=== PATIENT | female | born 1985 | race Caucasian/White ===

== ENCOUNTER 2021-02-15 08:15 | Inpatient (IN) | payer OTHER ==
[2021-02-15 09:08] VITALS: BMI 25.9
[2021-02-15] MEDS: ELECTROLYTE-148 SOLN 1,000 ML IV SCH ×3 (09:15→17:03)
[2021-02-15] MEDS ORDERED: OXYTOCIN 30 UNITS in 0.9% NS 30 UNIT/500 ML INFUS.BAG IVPB SCH (09:15)
[2021-02-15] MEDS ORDERED: DEXTROSE 5%-LACTATED RINGERS 1,000 ML IV SCH (09:15)
[2021-02-15 09:41] LABS: EOS % 0.6 % (0-4.5); HEMATOCRIT 36.7 % (32.4-45.2); HEMOGLOBIN 12.5 GM/dL (10.7-15.3); MCH 30.9 pg (25.7-33.7); MCHC 34.1 g/dl (32.0-36.0); MEAN CELL VOLUME 90.7 fl (80-96); MONO % 7.8 % (3.8-10.2); NEUT % 79.6 % (42.8-82.8); PLATELET COUNT 149 K/MM3 (134-434); RBC 4.05 M/mm3 (3.60-5.2); RDW 13.7 % (11.6-15.6); WHITE BLOOD COUNT 8.3 K/mm3 (4.0-10.0)
[2021-02-15 09:51] LABS: INR 0.91 (0.83-1.09)
[2021-02-15 09:55] LABS: ACTIVATED PTT 26.2 SECONDS (25.2-36.5)
[2021-02-15] MEDS ORDERED: OXYTOCIN 30 UNITS in 0.9% NS 30 UNIT/500 ML INFUS.BAG IVPB ONE (09:59)
[2021-02-15 10:03] LABS: CALCIUM 8.7 mg/dL (8.5-10.1)
[2021-02-15 10:04] LABS: BLOOD UREA NITROGEN 8.7 mg/dL (7-18)
[2021-02-15 10:07] LABS: CREATININE 0.5 mg/dL (0.55-1.3)
[2021-02-15 13:04] LABS: HIV INTERPRETATION NEGATIVE (NEGATIVE)
[2021-02-15] MEDS ORDERED: FENTANYL/BUPIVACAINE/NS/PF - PCEA - 50 ML DISP.SYRIN EP ONE ×2 (15:59→20:30)
[2021-02-15] MEDS ORDERED: PCA PUMP NR ONE (15:59)
[2021-02-15] MEDS ORDERED: BUPIVACAINE HCL/PF 0.25% (2.5MG/ML) 10 ML VIAL ONE (16:09)
[2021-02-15] MEDS ORDERED: NALOXONE HCL 0.4 MG/ML VIAL IVPUSH PRN (16:39)
[2021-02-15] MEDS ORDERED: FENTANYL/BUPIVACAINE/NS/PF - PCEA - 50 ML DISP.SYRIN EP SCH (16:45)
[2021-02-15] MEDS ORDERED: LIDOCAINE HCL 1% PRESERVATIVE FREE - 30ML VIAL ONE (21:31)
[2021-02-15] MEDS ORDERED: OXYTOCIN 20 UNITS in 0.9% NS 20 UNIT/1,000 ML INFUS.BAG IV ONE (21:32)
[2021-02-15 22:45] LABS: CORD BASE EXCESS -5.5 mmol/L (0-2); CORD HCO3 21.9 mmHg (20-29); CORD PCO2 49.5 mmHg (30-78); CORD pH 7.263 (7.14-7.44)
[2021-02-15] MEDS ORDERED: BISACODYL 10 MG SUPP.RECT RC PRN (22:45)
[2021-02-15] MEDS ORDERED: METHYLERGONOVINE MALEATE 0.2 MG/1 ML AMP IM PRN (22:45)
[2021-02-15] MEDS ORDERED: BENZOCAINE 28 GM HEMORRHOIDAL OINTMENT TP PRN (22:45)
[2021-02-15] MEDS ORDERED: BENZOCAINE 20% 57 GM BOTTLE TP PRN (22:45)
[2021-02-15] MEDS ORDERED: WITCH HAZEL 50% (TUCKS) 40 PAD/JAR PAD TP PRN (22:45)
[2021-02-15] MEDS ORDERED: OXYTOCIN 20 UNITS in 0.9% NS 20 UNIT/1,000 ML INFUS.BAG IV SCH (22:45)
[2021-02-15 22:47] LABS: CORD BASE EXCESS -6.7 mmol/L (0-2); CORD HCO3 18.4 mmHg (20-29); CORD PCO2 36.2 mmHg (30-78); CORD pH 7.325 (7.14-7.44)
[2021-02-15] MEDS ORDERED: LIDOCAINE HCL 2% JELLY (30 ML/TUBE) TP ONE (22:49)
[2021-02-15] MEDS ORDERED: DOCUSATE SODIUM 100 MG CAPSULE (FP) PO PRN (22:51)
[2021-02-16] MEDS ORDERED: OXYTOCIN 20 UNITS in 0.9% NS 20 UNIT/1,000 ML INFUS.BAG IV ONE (00:08)
[2021-02-16] MEDS ORDERED: PCA PUMP NR ONE (00:38)
[2021-02-16] MEDS: ACETAMINOPHEN 325 MG TABLET (FP) PO PRN ×2 (00:44→06:10)
[2021-02-16] MEDS: IBUPROFEN 600 MG TABLET (FP) PO PRN ×2 (00:44→06:10)
[2021-02-16] MEDS ORDERED: CEFAZOLIN 1 GM in DEXTROSE 5%-WATER - 50 ML IVPB SCH (02:00)
[2021-02-16] MEDS ORDERED: CEFAZOLIN 1 GM/D5W 1 GM/50 ML BAG IVPB SCH (02:11)
[2021-02-16] MEDS: CEFAZOLIN 1 GM/D5W 1 GM/50 ML BAG IVPB SCH ×2 (03:14→09:15)
[2021-02-16 09:47] LABS: EOS % 0.1 % (0-4.5); HEMATOCRIT 34.7 % (32.4-45.2); HEMOGLOBIN 11.6 GM/dL (10.7-15.3); LYMPH % 4.8 % (8-40); MCH 30.8 pg (25.7-33.7); MCHC 33.6 g/dl (32.0-36.0); MEAN CELL VOLUME 91.7 fl (80-96); MEAN PLT VOLUME 9.5 fl (7.5-11.1); MONO % 5.2 % (3.8-10.2); NEUT % 89.9 % (42.8-82.8); PLATELET COUNT 159 K/MM3 (134-434); RBC 3.78 M/mm3 (3.60-5.2); RDW 13.6 % (11.6-15.6); WHITE BLOOD COUNT 16.4 K/mm3 (4.0-10.0)
[2021-02-16] MEDS ORDERED: SENNOSIDES/DOCUSATE COMBO (SENNA PLUS) TABLET (UD) PO PRN (22:00)
[2021-02-17] MEDS ORDERED: ALBUTEROL SO4 0.083% IH SOL 2.5 MG/3 ML VIAL.NEB. NEB ONE (00:12)
[2021-02-17 14:21] VITALS: BP 110/62; PULSE 90; TEMP 98.8
== END 2021-02-17 13:05 | disposition home or self-care (01) | DRG 768 ==
LOC: JLDR 08:15 → J3W 02-16 00:22
PROVIDERS: ADMIT Obstetrics & Gynecology; ATTEND Obstetrics & Gynecology
PROC: 10E0XZZ Delivery of Products of Conception, External Approach (ICD-10-PCS; principal; 2021-02-16)
PROC: 0DQR0ZZ Repair Anal Sphincter, Open Approach (ICD-10-PCS; 2021-02-16)
DX: O70.20 Third degree perineal laceration during delivery, unspecified (principal); Z37.0 Single live birth; O69.81X0 Labor and delivery complicated by cord around neck, without compression, not applicable or unspecified; Z3A.40 40 weeks gestation of pregnancy
CPT/HCPCS: 36415; 36600; 59409; 80048; 82803; 85025; 85610; 85730; 86762; 86780; 86850; 86900; 86901; 87350; 87389